=== PATIENT | male | born 1970 | race Two or more races ===

== ENCOUNTER 2017-10-10 19:51 | Emergency (ER) | payer MEDICAID ==
[~2017-10-10] VITALS: Ht 182.9 cm; Wt 102.1 kg
--- NOTE | 2017-10-10 19:55 | NUR ---
PT BIBRA FROM HOME. AWAKEN FROM A [facility]AP[facility]/O L SIDED NECK PAIN. PT DENIES TRAUMA. STATES SOB. SATTING 98%. AWAITING MD DE LA CRUZ.
--- NOTE | 2017-10-10 20:18 | NUR ---
ALESHIA NUNEZ AT BEDSIDE FOR EVAL.
[2017-10-10] MEDS ORDERED: HYDROCODONE/APAP 5/325MG 1 EACH TABLET ONE (20:25)
[2017-10-10] MEDS ORDERED: CYCLOBENZAPRINE 10 MG TABLET ONE (20:26)
--- NOTE | 2017-10-10 20:29 | NUR ---
PT OT RADIOLOGY FOR CERVICAL SPINE CT SCAN.
[2017-10-10] MEDS ORDERED: CYCLOBENZAPRINE 10 MG TABLET PO ONE (20:30)
[2017-10-10] MEDS ORDERED: HYDROCODONE/APAP 5/325MG 1 EACH TABLET PO ONE (20:30)
--- NOTE | 2017-10-10 22:46 | NUR ---
Patient discharged to home in stable condition. Written and verbal after care instructions given. Patient verbalizes understanding of instruction.
[2017-10-10 22:50] VITALS: BP 136/92
== END 2017-10-10 22:51 | disposition home or self-care (01) ==
LOC: ER 19:54
DX: M54.2 Cervicalgia (principal)
CPT/HCPCS: 72050; 99284; A4606; Z7610